=== PATIENT | female | born 1970 | race Caucasian/White ===

== ENCOUNTER 2018-02-04 16:09 | Emergency (ER) | payer OTHER ==
[2018-02-04] MEDS ORDERED: NS 500 ML IV ONE (16:31)
--- NOTE | 2018-02-04 16:36 | EDPHY ---
H & P Stated Complaint: fluttering feeling in chest x 2 days/lightheaded/shaky Time Seen by Provider: 02/04/18 16:26 HPI/ROS: CHIEF COMPLAINT: Palpitations, chest tightness, fluttering HISTORY OF PRESENT ILLNESS: The patient is a 47-year-old female with a history of hypothyroidism and PVCs whose had occasional chest tightness and palpitations for several years. She feels like her symptoms have gotten worse in the last couple of months. She also has nonproductive cough for the last 2 weeks. No fever. No sore throat. No runny nose. She presented to a new primary care office today where she had normal EKG done and was given baby aspirin and sent to the emergency department. No GI symptoms. No shortness of breath. Severity: Moderate Modifying factors: None REVIEW OF SYSTEMS: Constitutional: denies: chills, fever, recent illness, recent injury EENTM: denies: blurred vision, double vision, nose congestion Respiratory: See HPI Cardiac: See HPI Gastrointestinal/Abdominal: denies: abdominal pain, diarrhea, nausea, vomiting, blood streaked stools Genitourinary: denies: dysuria, frequency, hematuria, pain Musculoskeletal: denies: joint pain, muscle pain Skin: denies: lesions, rash, jaundice, bruising Neurological: denies: headache, numbness, paresthesia, tingling, dizziness, weakness Hematologic/Lymphatic: denies: blood clots, easy bleeding, easy bruising Immunologic/allergic: denies: HIV/AIDS, transplant 10 systems reviewed and negative except as noted EXAM: GENERAL: Well-appearing, well-nourished and in no acute distress. HEAD: Atraumatic, normocephalic. EYES: Pupils equal round and reactive to light, extraocular movements intact, sclera anicteric, conjunctiva are normal. ENT: TMs normal, nares patent, oropharynx clear without exudates. Moist mucous membranes. NECK: Normal range of motion, supple without lymphadenopathy or JVD. LUNGS: Breath sounds clear to auscultation bilaterally and equal. No wheezes rales or rhonchi. HEART: Regular rate and rhythm without murmurs, rubs or gallops. ABDOMEN: Soft, nontender, normoactive bowel sounds. No guarding, no rebound. No masses appreciated. BACK: No CVA tenderness, no spinal tenderness, step-offs or deformities EXTREMITIES: Normal range of motion, no pitting or edema. No clubbing or cyanosis. NEUROLOGICAL: Cranial nerves II through XII grossly intact. Normal speech, normal gait. 5/5 strength, normal movement in all extremities, normal sensation , normal reflexes PSYCH: Normal mood, normal affect. SKIN: Warm, dry, normal turgor, no visible rashes or lesions. Source: Patient Exam Limitations: No limitations - Personal History LMP (Females 10-55): Irregular Current Tetanus Diphtheria and Acellular Pertussis (TDAP): Unsure - Medical/Surgical History Hx Asthma: No Hx Chronic Respiratory Disease: No Hx Diabetes: No Hx Cardiac Disease: No Hx Renal Disease: No Hx Cirrhosis: No Hx Alcoholism: No Hx HIV/AIDS: No Hx Splenectomy or Spleen Trauma: No Other PMH: hypothyroid, PVCs - Family History Significant Family History: No pertinent family hx - Social History Smoking Status: Never smoked Alcohol Use: Sober Drug Use: None Constitutional: Initial Vital Signs Temperature (C) 36.6 C 02/04/18 16:14 Heart Rate 72 02/04/18 16:14 Respiratory Rate 18 02/04/18 16:14 Blood Pressure 130/93 H 02/04/18 16:14 O2 Sat (%) 98 02/04/18 16:14 O2 Delivery Mode Room Air Allergies/Adverse Reactions: Penicillins Allergy (Verified 12/11/12 10:30) Sulfa (Sulfonamide Antibiotics) Allergy (Verified 12/11/12 10:30) Home Medications: Medication Instructions Recorded Gabapentin 12/11/12 Levothyroxine 12/11/12 Wellbutrin 150mg XL 12/11/12 Medical Decision Making - Diagnostics EKG Interpretation: An EKG obtained and was read and documented in trace view. Please see trace view for full reading and report. Sinus rhythm, no acute ischemic changes, no arrhythmias Imaging Results: Imaging Impressions Chest X-Ray 02/04/18 16:31 Impression: No significant radiographic abnormality. Specifically, a source for chest pain is not identified. Imaging: Discussed imaging studies w/ order caller Radiologist ED Course/Re-evaluation: 6:00 p.m. We discussed the patient's test results which are very reassuring. She had some palpitations consistent with her previous symptoms at 5:48 a.m.. She had 2 PACs found on the rhythm strip at that time. No other abnormality seen on rhythm strips during her duration here. We discussed follow-up for these as well as possible treatments. Otherwise she is completely asymptomatic now and eager to go home. Differential Diagnosis: Partial list of the Differential diagnosis considered include but were not limited to; palpitations, PACs, PVC and although unlikely based on the history and physical exam, I also considered the acute coronary disease, PE, atrial fibrillation. I discussed these differential diagnoses and the plan with the patient as well as the usual and expected course. The patient understands that the diagnosis is provisional and that in medicine we are not always correct and that further workup is often warranted. Usual and customary warnings were given. All of the patient's questions were answered. The patient was instructed to return to the emergency department should the symptoms at all worsen or return, otherwise to followup with the physician as we discussed. - Data Points Laboratory Results: Laboratory Results 02/04/18 16:30 02/04/18 16:30 02/04/18 02/04/18 02/04/18 16:46 16:30 16:30 WBC RBC Hgb Hct MCV MCH MCHC RDW Plt Count MPV Neut % (Auto) Lymph % (Auto) Mcnairy % (Auto) Eos % (Auto) Baso % (Auto) Nucleat RBC Rel Count Absolute Neuts (auto) Absolute Lymphs (auto) Absolute Monos (auto) Absolute Eos (auto) Absolute Basos (auto) Absolute Nucleated RBC Immature Gran % Immature Gran # PT INR APTT D-Dimer Sodium 138 mEq/L mEq/L (135-145) Potassium 4.1 mEq/L mEq/L (3.5-5.2) Chloride 100 mEq/L mEq/L (97-110) Carbon Dioxide 25 mEq/l mEq/l (22-31) Anion Gap 13 mEq/L mEq/L (6-14) BUN 14 mg/dL mg/dL (7-23) Creatinine 0.9 mg/dL mg/dL (0.6-1.0) Estimated GFR > 60 Glucose 88 mg/dL mg/dL (70-100) Calcium 10.1 mg/dL mg/dL (8.5-10.4) POC Troponin I 0.00 ng/mL ng/mL (0.00-0.08) TSH 3.090 uIU/mL uIU/mL (0.465-4.680) Free T4 1.46 ng/dL ng/dL (0.59-2.19) Beta HCG, Qual NEGATIVE 02/04/18 02/04/18 16:30 16:30 WBC 6.00 10^3/uL 10^3/uL (3.80-9.50) RBC 4.92 10^6/uL 10^6/uL (4.18-5.33) Hgb 15.0 g/dL g/dL (12.6-16.3) Hct 43.0 % % (38.0-47.0) MCV 87.4 fL fL (81.5-99.8) MCH 30.5 pg pg (27.9-34.1) MCHC 34.9 g/dL g/dL (32.4-36.7) RDW 13.3 % % (11.5-15.2) Plt Count 392 10^3/uL 10^3/uL (150-400) MPV 10.5 fL fL (8.7-11.7) Neut % (Auto) 54.5 % % (39.3-74.2) Lymph % (Auto) 35.5 % % (15.0-45.0) Mcnairy % (Auto) 7.3 % % (4.5-13.0) Eos % (Auto) 1.7 % % (0.6-7.6) Baso % (Auto) 0.8 % % (0.3-1.7) Nucleat RBC Rel Count 0.0 % % (0.0-0.2) Absolute Neuts (auto) 3.27 10^3/uL 10^3/uL (1.70-6.50) Absolute Lymphs (auto) 2.13 10^3/uL 10^3/uL (1.00-3.00) Absolute Monos (auto) 0.44 10^3/uL 10^3/uL (0.30-0.80) Absolute Eos (auto) 0.10 10^3/uL 10^3/uL (0.03-0.40) Absolute Basos (auto) 0.05 10^3/uL 10^3/uL (0.02-0.10) Absolute Nucleated RBC 0.00 10^3/uL 10^3/uL (0-0.01) Immature Gran % 0.2 % % (0.0-1.1) Immature Gran # 0.01 10^3/uL 10^3/uL (0.00-0.10) PT 13.1 SEC SEC (12.0-15.0) INR 0.97 (0.83-1.16) APTT 28.4 SEC SEC (23.0-38.0) D-Dimer < 0.27 ug/mLFEU ug/mLFEU (0.00-0.50) Sodium Potassium Chloride Carbon Dioxide Anion Gap BUN Creatinine Estimated GFR Glucose Calcium POC Troponin I TSH Free T4 Beta HCG, Qual Medications Given: Discontinued Medications Sodium Chloride (Ns) 500 mls @ 1,000 mls/hr IV EDNOW ONE PRN Reason: Protocol Stop: 02/04/18 17:00 Last Admin: 02/04/18 16:44 Dose: 500 mls Point of Care Test Results: Chemistry 02/04/18 16:46 POC Troponin I 0.00 ng/mL ng/mL (0.00-0.08) Departure - Departure Disposition: Home, Routine, Self-Care Clinical Impression: Palpitations Condition: Fair Instructions: Heart Palpitations (ED) Referrals: [facility] [Other] - 2-3 days, call for appt.
[2018-02-04 17:05] LABS: PLATELET COUNT 392 10^3/uL (150-400)
[2018-02-04 17:14] LABS: INR 0.97 (0.83-1.16); PROTIME(PATIENT) 13.1 SEC (12.0-15.0)
[2018-02-04 18:18] VITALS: BP 131/93
--- NOTE | 2018-02-06 20:31 | CPEKG ---
Test Reason : OPEN Blood Pressure : / mmHG Vent. Rate : 078 BPM Atrial Rate : 076 BPM P-R Int : 149 ms QRS Dur : 083 ms QT Int : 391 ms P-R-T Axes : 077 043 034 degrees QTc Int : 446 ms Sinus rhythm Confirmed by Mark Vo ([id number]) on 02/06/2018 8:30:45 PM Referred By: Confirmed By:Mark Vo
== END 2018-02-04 18:18 | disposition home or self-care (01) ==
DX: R00.2 Palpitations (principal); E03.9 Hypothyroidism, unspecified; I49.3 Ventricular premature depolarization
CPT/HCPCS: 84484-PO